=== PATIENT | female | born 1960 | race Caucasian/White ===

== ENCOUNTER → 2019-04-15 14:30 | Outpatient (BNVA) | payer SELFPAY | PROVIDERS: PCP Nurse Practitioner Family; Visit Provider Obstetrics & Gynecology | DX: N95.2 Postmenopausal atrophic vaginitis (principal); B96.89 Other specified bacterial agents as the cause of diseases classified elsewhere | CPT/HCPCS: 87491; 87591; 87661 ==

== ENCOUNTER → 2019-04-25 11:08 | Outpatient (BNVA) | payer SELFPAY | PROVIDERS: PCP Nurse Practitioner Family; Visit Provider Family Medicine | DX: B96.89 Other specified bacterial agents as the cause of diseases classified elsewhere (principal); N76.0 Acute vaginitis | CPT/HCPCS: 87491; 87591; 87661 ==

== ENCOUNTER → 2019-09-14 08:40 | Outpatient (BNVA) | payer SELFPAY | PROVIDERS: PCP Nurse Practitioner Family; Referring Provider Registered Nurse; Visit Provider Registered Nurse | DX: Z79.899 Other long term (current) drug therapy (principal) | CPT/HCPCS: 80061; 80178; 83036 ==

== ENCOUNTER → 2020-11-08 13:26 | Outpatient (BNVA) | payer SELFPAY | PROVIDERS: PCP Nurse Practitioner Family; Visit Provider Registered Nurse | DX: Z79.899 Other long term (current) drug therapy (principal) | CPT/HCPCS: 36415; 80053; 80061; 80178; 83036; 83721; 84443; 85025 ==

== ENCOUNTER → 2021-11-21 09:29 | Outpatient (BNVA) | payer MEDICAID, SELFPAY | PROVIDERS: Family Provider Nurse Practitioner Family; PCP Nurse Practitioner Family; Visit Provider Registered Nurse | DX: Z79.899 Other long term (current) drug therapy (principal); F43.12 Post-traumatic stress disorder, chronic; F31.0 Bipolar disorder, current episode hypomanic; G47.30 Sleep apnea, unspecified; F10.10 Alcohol abuse, uncomplicated | CPT/HCPCS: 80053; 80061; 83036; 83721; 84443 ==

== ENCOUNTER → 2022-01-07 08:16 | Outpatient (BNVA) | payer SELFPAY | PROVIDERS: Family Provider Nurse Practitioner Family; PCP Nurse Practitioner Family; Visit Provider Physician Assistant | DX: S43.432A Superior glenoid labrum lesion of left shoulder, initial encounter (principal); V89.2XXA Person injured in unspecified motor-vehicle accident, traffic, initial encounter | CPT/HCPCS: 73030 ==

== ENCOUNTER 2022-01-28 08:20 | Outpatient (RCR) | payer SELFPAY | END 2022-02-19 23:59 | disposition home or self-care (01) | LOC: SPT 08:20 | PROVIDERS: Family Provider Nurse Practitioner Family; PCP Nurse Practitioner Family; Visit Provider Orthopaedic Surgery | DX: S43.432D Superior glenoid labrum lesion of left shoulder, subsequent encounter (principal); X58.XXXD Exposure to other specified factors, subsequent encounter | CPT/HCPCS: 97110; 97161 ==

== ENCOUNTER 2022-02-19 18:44 | Emergency (ER) | payer MEDICAID, SELFPAY ==
--- NOTE | 2022-02-19 18:47 | XRR_ITS ---
PROCEDURE INFORMATION: Exam: XR Chest Exam date and time: 02/19/2022 7:22 PM Age: 61 years old Clinical indication: Pain; Angina pectoris and chest pressure; Additional info: Cp TECHNIQUE: Imaging protocol: Radiologic exam of the chest. Views: 1 view. COMPARISON: CR XR shoulder LT min 2V* [id number] 01/07/2022 8:18 AM FINDINGS: Lungs: Calcified granuloma in the left lung. The lungs are otherwise clear. Pleural spaces: Unremarkable. No pleural effusion. No pneumothorax. Heart/Mediastinum: Unremarkable. No cardiomegaly. Bones/joints: Unremarkable. XR/XR chest 1V portable [id number] IMPRESSION: No acute findings.
--- NOTE | 2022-02-19 18:47 | ECG_ITS ---
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 Measurements Intervals [place] Rate: 69 P: 45 MN: 174 QRS: -8 QRSD: 103 T: -2 QT: 383 QTc: 411 Interpretive Statements SINUS RHYTHM LOW QRS VOLTAGE IN PRECORDIAL LEADS MINIMAL VOLTAGE CRITERIA FOR LVH, CONSIDER NORMAL VARIANT Compared to ECG 01/21/2017 17:01:46 ST (T wave) deviation no longer present Electronically Signed On 02-20-2022 19:04:22 BARREL FILLER by Krystle Diaz M.D. [id number]
[2022-02-19 19:15] VITALS: BMI 31.0
[2022-02-19 19:19] VITALS: BP 124/78; PULSE 67; RESP 18; TEMP 36.3; O2SAT 96
[2022-02-19 20:45] LABS: Basophils % 0.4 %; Eosinophils # 0.3 10^3/uL (0.0-0.8); Eosinophils % 3.1 %; Hematocrit 42.7 % (37.0-47.0); Hemoglobin 15.1 g/dL (11.5-15.3); Lymphocytes # 3.4 10^3/uL (0.8-4.8); Lymphocytes % 42.1 %; Mean Corpuscular HGB Conc 35.4 g/dL (30.0-36.0); Mean Corpuscular Hemoglobin 32.5 pg (28.0-34.0); Mean Corpuscular Volume 91.8 fl (81-99); Mean Platelet Volume 10.6 fL (7.4-10.4); Monocytes # 0.6 10^3/uL (0.2-0.9); Monocytes % 7.3 %; Neutrophils # 3.73 10^3/uL (1.8-7.7); Neutrophils % 46.7 %; Nucleated Red Blood Cells % 0 %; Platelet Count 296 10^3/cmm (130-400); Red Blood Count 4.65 10^6/uL (4.1-5.3); Red Cell Distribution Width 12.2 % (12.1-15.1)
--- NOTE | 2022-02-19 20:47 | ECG_ITS ---
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 Measurements Intervals [place] Rate: 60 P: 48 DC: 186 QRS: -11 QRSD: 105 T: -4 QT: 401 QTc: 401 Interpretive Statements SINUS RHYTHM LOW QRS VOLTAGE IN PRECORDIAL LEADS [QRS DEFLECTION < 1.0 mV IN CHEST LEADS] MODERATE VOLTAGE CRITERIA FOR LVH, CONSIDER NORMAL VARIANT [MEETS CRITERIA IN ONE OF: R(aVL), S(V1), R(V5), R(V5/V6)+S(V1)] Compared to ECG 01/21/2017 17:01:46 ST (T wave) deviation no longer present Electronically Signed On 02-20-2022 19:21:14 NEONATAL INTENSIVE CARE UNIT NURSE by Krystle Diaz M.D. [id number]
--- NOTE | 2022-02-19 20:58 | ED_ITS ---
HPI - Chest Pain General: Chief Complaint: Chest Pain Stated Complaint: Left Pain Collar Bone And Down To Chest Time Seen by Provider: 02/19/22 20:37 History of Present Illness: Patient comes in with chest pain. States that earlier this morning she started having left upper chest pain which she describes as sharp, last for a couple minutes when it happens, comes and goes. Denies shortness of breath, or cold symptoms including no fever, cough, congestion, vomiting, or diarrhea. Associated symptoms: Deny abdominal pain, dyspnea, fever(s), nausea, palpitations or vomiting Review of Systems Const: Denies: fever(s) or body aches Eyes: Denies: change in vision or blurry vision ENMT: Denies: throat pain or odynophagia Card: Reports: chest pain; Denies: palpitations Resp: Denies: dyspnea or productive cough GI: Denies: abdominal pain, nausea or vomiting : Denies: flank pain or dysuria Musc: Denies: neck pain or back pain Skin/Breast: Denies: rash or pruritus Neuro: Denies: headache(s) or numbness in extremities Psych: Denies: anxiety or change in appetite Endo: Denies: polyuria or excessive sweating PFSH ED PFSH: Medical History Alcohol use disorder, mild, abuse Atrophic vaginitis Bipolar disorder, most recent episode hypomanic Chronic post-traumatic stress disorder Medication management Psychiatric care Sleep apnea treated with Cpap Family History Mother Uterine cancer, Onset Age: 33 Hypertension Father Stroke Social History Smoking and tobacco status: former smoker Quit status (tobacco): has quit using tobacco Year quit tobacco: 2003 Alcohol intake: never Physical Exam Const: COMMON NORMALS: no acute distress, patient oriented x3, healthy appearing and alert HENMT: COMMON NORMALS: normocephalic and atraumatic HEAD & SCALP: normocephalic and atraumatic Eye: COMMON NORMALS: Equal, round and reactive pupils present and EOMs intact bilaterally PUPIL: Yes Equal, round and reactive pupils present Neck/C-Spine: COMMON NORMALS: full ROM and supple Resp: COMMON NORMALS: normal respiratory effort, No retractions and No use of accessory muscles Cardio: COMMON NORMALS: regular rate and regular rhythm RATE: regular rate RHYTHM: regular rhythm GI: COMMON NORMALS: Normal to inspection, nondistended, normoactive bowel sounds present, Soft to palpation and non-tender PALPATION: Yes Soft to palpation Back/Pelvis: COMMON NORMALS: thoracic and lumbar spine normal to inspection and no thoracic nor lumbar tenderness Extremity: COMMON NORMALS: normal to inspection and full ROM Neuro: COMMON NORMALS: patient oriented x3 SENSORIUM/ORIENTATION: Yes alert Psych: COMMON NORMALS: mental status grossly normal and cooperative Skin: COMMON NORMALS: no rashes or lesions noted and no wounds GENERAL SKIN EXAM: no rashes or lesions noted Course Vital Signs: Vital signs: Vital Signs Temperature 97.3 F L 02/19/22 19:19 Pulse Rate 59 L 02/19/22 21:30 Respiratory Rate 14 02/19/22 21:30 Blood Pressure 157/90 02/19/22 21:30 Pulse Oximetry 96 02/19/22 21:30 Oxygen Delivery Me thod 02/19/22 21:00 MDM - Chest Pain Medical Decision Making Patient comes in with chest pain. States that earlier this morning she started having left upper chest pain which she describes as sharp, last for a couple minutes when it happens, comes and goes. Denies shortness of breath, or cold symptoms including no fever, cough, congestion, vomiting, or diarrhea. Physical exam is unremarkable. Will check labs, EKG, x-ray, and reassess. On reassessment I talked to the patient about the test results. Will discharge home at this time with precautions to return for worsening or changing symptoms. Lab Data 02/19/22 20:28 02/19/22 20:28 Radiology Impressions Chest X-Ray 02/19/22 18:47 IMPRESSION: No acute findings. Laboratory Results WBC 8.0 10^3/uL (4.0-10.0) 02/19/22 20: RBC 4.65 10^6/uL (4.1-5.3) 02/19/22 20:28 Hgb 15.1 g/dL (11.5-15.3) 02/19/22 20: Hct 42.7 % (37.0-47.0) 02/19/22 20: MCV 91.8 fl (81-99) 02/19/22 20: MCH 32.5 pg (28.0-34.0) 02/19/22: MCHC 35.4 g/dL (30.0-36.0) 02/19/22 20: RDW 12.2 % (12.1-15.1) 02/19/22 20: Plt Count 296 10^3/cmm (130-400) 02/19/22: MPV 10.6 fL (7.4-10.4) H 02/19/22 20: Neut % (Auto) 46.7 % 02/19/22: Lymph % (Auto) 42.1 % 02/19/22: [place] % (Auto) 7.3 % 02/19/22: Eos % (Auto) 3.1 % 02/19/22: Baso % (Auto) 0.4 % 02/19/22 Neut # (Auto) 3.73 10^3/uL (1.8-7.7) 02/19/22 20: Lymph # (Auto) 3.4 10^3/uL (0.8-4.8) 02/19/22: [place] # (Auto) 0.6 10^3/uL (0.2-0.9) 02/19/22: Eos # (Auto) 0.3 10^3/uL (0.0-0.8) 02/19/22: Baso # (Auto) 0.0 10^3/uL (0.0-0.1) 02/19/22: Nucleated RBC % (auto) 0 % 02/19/22: Nucleated RBCs # 0.0 /100WBC 02/19/22 20: Sodium 139 mmol/L (136-145) 02/19/22 20: Potassium 4.2 mmol/L (3.5-5.1) 02/19/22 20: Chloride 105 mmol/L (98-107) 02/19/22 20: Carbon Dioxide 23 mmol/L (22-29) 02/19/22: Anion Gap 15.2 (5-19) 02/19/22:28 BUN 15 mg/dL (6-20) 02/19/22 20:28 Creatinine 0.7 mg/dL (0.5-0.9) 02/19/22 20:28 GFR Calculation 85.6 mL/min (90-130) L 02/19/22 20:28 Glucose 171 mg/dL (65-115) H 02/19/22 20:28 Calculated Osmolality 293 mOsm/kg (285-295) 02/19/22 20:28 Calcium 9.5 mg/dL (8.5-10.5) 02/19/22 20:28 Total Bilirubin 0.2 mg/dL (0.15-1.2) 02/19/22 20:28 AST 30 U/L (0-32) 02/19/22 20:28 ALT 35 U/L (0-33) H 02/19/22 20:28 Alkaline Phosphatase 147 U/L (35-105) H 02/19/22 20:28 Troponin T Baseline 9 ng/L (0-10) 02/19/22 20:28 Total Protein 6.7 g/dL (6.6-8.7) 02/19/22 20:28 Albumin 4.0 g/dL (3.5-5.2) 02/19/22 20:28 Globulin 2.7 g/dL (1.3-4.6) 02/19/22 20:28 Discharge Plan Discharge Patient Disposition: Home Clinical Impression: Nonspecific chest pain Condition: Stable Prescriptions: No Action lisinopril 20 mg tablet 20 mg PO QDAY aripiprazole 5 mg tablet 5 mg PO DAILY 90 Days Qty: 90 1RF escitalopram oxalate [Lexapro] 20 mg tablet 20 mg PO DAILY 90 Days Qty: 90 1RF Discharge Orders: Discharge ED (Routine); Ordered 02/19/22 Ordered By: Shukri Charles Referrals: Monet Helm, BUSINESS SERVICES DIRECTOR [Primary Care Provider] - Patient Instructions: Chest Pain (ED) Coding Level of Care Code ED [facility] Justice for Liudmila Fwd Exam Comprehensive
[2022-02-19 21:00] VITALS: BP 151/90; PULSE 60; RESP 20; O2SAT 95
[2022-02-19 21:08] LABS: Troponin(5th) Baseline 9 ng/L (0-10)
[2022-02-19 21:10] LABS: Alkaline Phosphatase 147 U/L (35-105); Blood Urea Nitrogen 15 mg/dL (6-20); Calcium 9.5 mg/dL (8.5-10.5); Carbon Dioxide 23 mmol/L (22-29); Chloride 105 mmol/L (98-107); Globulin 2.7 g/dL (1.3-4.6); Glomerular Filtration Rate 85.6 mL/min (90-130); Glucose 171 mg/dL (65-115); Osmolality Calculated 293 mOsm/kg (285-295); Sodium 139 mmol/L (136-145); Total Bilirubin 0.2 mg/dL (0.15-1.2); Total Protein 6.7 g/dL (6.6-8.7)
[2022-02-19 21:25] LABS: Anion Gap 15.2 (5-19); Potassium 4.2 mmol/L (3.5-5.1)
[2022-02-19 21:28] LABS: Alanine Aminotransferase 35 U/L (0-33)
[2022-02-19 21:30] VITALS: BP 157/90; PULSE 59; RESP 14; O2SAT 96
[2022-02-19 21:55] LABS: Aspartate Amino Transferase 30 U/L (0-32)
== END 2022-02-19 22:18 | disposition home or self-care (01) ==
PROVIDERS: Emergency Medicine; Emergency Provider Emergency Medicine; PCP Nurse Practitioner Family
DX: R07.9 Chest pain, unspecified (principal); Z87.891 Personal history of nicotine dependence
CPT/HCPCS: 71045; 80053; 84484; 85025; 93005; 99285

== ENCOUNTER 2022-02-20 06:00 | Outpatient (RCR) | payer SELFPAY | END 2022-02-20 23:59 | disposition home or self-care (01) | LOC: SPT 06:00 | PROVIDERS: PCP Nurse Practitioner Family; Visit Provider Orthopaedic Surgery | DX: S43.432D Superior glenoid labrum lesion of left shoulder, subsequent encounter (principal); X58.XXXD Exposure to other specified factors, subsequent encounter | CPT/HCPCS: 97110 ==

== ENCOUNTER → 2023-01-19 13:52 | Outpatient (BNVA) | payer OTHER, SELFPAY | PROVIDERS: PCP Nurse Practitioner Family; Visit Provider Psychiatry & Neurology Psychiatry | DX: Z79.899 Other long term (current) drug therapy (principal) | CPT/HCPCS: 83036 ==